=== PATIENT | female | born 1990 | race Caucasian/White ===

== ENCOUNTER 2023-03-20 03:34 | Outpatient (REF) | payer OTHER, SELFPAY ==
[2023-03-20 04:00] LABS: INR 1.68; Prothrombin Time 17.3 sec (9.0-11.6)
== END 2023-03-20 03:35 | disposition home or self-care (01) ==
LOC: LAB 03:34
DX: Z79.01 Long term (current) use of anticoagulants (principal)
CPT/HCPCS: 36415; 85610